=== PATIENT | male | born 1985 | race Caucasian/White ===

== ENCOUNTER 2018-07-19 17:05 | Emergency (ER) | payer SELFPAY ==
[~2018-07-19] VITALS: Ht 180.3 cm; Wt 65.9 kg
[2018-07-19 17:11] VITALS: Ht 180.3 cm; Wt 65.9 kg
[2018-07-19] MEDS ORDERED: KEFLEX500 MG PO (17:53)
[2018-07-19] MEDS ORDERED: TORADOL10 MG PO (17:53)
[2018-07-19 18:05] VITALS: BP 137/83
== END 2018-07-19 18:05 | disposition home or self-care (01) ==
LOC: D.ER 17:05
DX: S61.542A Puncture wound with foreign body of left wrist, initial encounter (principal); W29.4XXA Contact with nail gun, initial encounter; Y93.89 Activity, other specified; Y92.89 Other specified places as the place of occurrence of the external cause; F17.200 Nicotine dependence, unspecified, uncomplicated

== ENCOUNTER 2020-02-10 09:53 | Emergency (ER) | payer SELFPAY ==
[~2020-02-10] VITALS: Ht 180.3 cm; Wt 79.5 kg
[~2020-02-10 09:53] MED LIST: KEFLEX500 MG PO; TORADOL10 MG PO
[2020-02-10 09:58] VITALS: Ht 180.3 cm; Wt 79.5 kg
[2020-02-10 10:57] VITALS: BP 118/73
[2020-02-11] MEDS ORDERED: PERCOCET 5-3251 TAB PO (14:01)
[2020-02-11] MEDS ORDERED: DURICEF500 MG PO (14:01)
== END 2020-02-10 10:58 | disposition home or self-care (01) ==
LOC: D.ER 09:53
DX: S62.614A Displaced fracture of proximal phalanx of right ring finger, initial encounter for closed fracture (principal); W22.8XXA Striking against or struck by other objects, initial encounter; Y93.9 Activity, unspecified; Y92.9 Unspecified place or not applicable

== ENCOUNTER 2020-02-11 10:06 | Day surgery (SDC) | payer SELFPAY ==
[~2020-02-11] VITALS: Ht 180.3 cm; Wt 79.4 kg
[2020-02-11 10:42] VITALS: BP 116/68; Ht 180.3 cm; Wt 79.4 kg
[2020-02-11] MEDS ORDERED: PERCOCET 5-3251 TAB PO (14:01)
[2020-02-11] MEDS ORDERED: DURICEF500 MG PO (14:01)
--- NOTE | 2020-02-11 15:27 | NUR ---
DC INSTRUCTIONS GIVEN TO PT AND SO. STATES UNDERSTANDING. DC'D IV CATH FULLY INTACT.
--- NOTE | 2020-02-11 15:29 | NUR ---
PT LEFT UNIT VIA WC AT 1529
--- NOTE | 2020-02-12 08:28 | OP ---
PATIENT NAME: ARTEMIO CASILLAS MEDICAL RECORD: [id number] :86 LOCATION:[facility] ADMISSION DATE: SURGEON: IVAN RODRIGUEZ DO DATE OF OPERATION: 02/11/2020 PROCEDURE PERFORMED: Right ring finger external fixator placement. PREOPERATIVE DIAGNOSIS: Right ring finger middle phalanx fracture with PIP dislocation. POSTOPERATIVE DIAGNOSIS: Right ring finger middle phalanx fracture with PIP dislocation. INDICATIONS: Mr. Casillas is a 34-year-old male who sustained an injury to his right ring finger. It dislocated. He said he popped it back in. He was seen in the ER and was sent right over to my clinic. Upon seeing the x-rays, I have scheduled him for surgery today, informed him of the risks including continued pain, loss of motion of that finger, infection, bleeding, damage to nerves and vessels in the area, amputation even, extreme loss of motion and he signed the consent as well as need for another surgery. He has signed the consent. SURGEON: Ivan Rodriguez DO DESCRIPTION OF PROCEDURE: The patient was taken to the operative suite after given a block by anesthesia in the preoperative area, laid in the supine position, given general anesthetic and LMA was placed. The patient was given 2 grams of Ancef and the right upper extremity was prepped and draped in sterile fashion. A timeout was performed and everyone was in agreement with correct side, site, patient and procedure and exsanguinated the right upper extremity with an Esmarch, tourniquet was inflated to 250 mmHg, was up for 55 minutes. We then began by making an incision over the dorsal aspect of the PIP joint. Careful dissection was made down to the PIP joint. I split the extensor tendon there. The extensor tendon was intact as well as the central slip was attached to the middle phalanx, then opened the joint. I could not grab the piece that had been fractured through that method. I went volar, did a V-shaped incision on the volar aspect of the ring finger over the PIP joint and opened up to the tendons. The tendons were pulled to one side and the piece of the middle phalanx that was fractured was removed as it was too small for any type of fixation. Once that was completed, the instability was noted of the joint and I put on the external fixator putting a 0.045 K wire, first at the distal portion of the proximal phalanx and then 2 in the middle phalanx, 1 distally and 1 proximally at the joint. I then performed the external fixator, the most proximal wires to be most distal. Once that was completed, the other K-wires were bent. The more distal one on the middle phalanx was then just short of the more distal on the proximal phalanx and then the more proximal one in the middle phalanx was hooked over the longer one, the one that was in the proximal phalanx. I then put rubber bands on after bending them in a hook type fashion securing them and in fact distracting the PIP joint and holding it reduced, it was reduced well on x-ray on AP and lateral and had good motion and throughout range of motion remained reduced. The tourniquet was then let down and the sites were dressed with Adaptic, 4 x 4s and a Kerlix and Jose wrap. He was then awakened and taken to recovery in stable condition. BLOOD LOSS: Minimal. OPERATIVE REPORT [id number] ARTEMIO CASILLAS COMPLICATIONS: None. TRANSINT:[id number] Voice Confirmation ID: [id number] DOCUMENT ID: [id number] IVAN RODRIGUEZ DO at 0828 CC: [id number] DICTATION DATE: 02/11/[address] RESEARCHER: 02/12/20 0045 [facility] 02/11/20 [place] [id number] [place] [id number]
== END 2020-02-11 15:29 | disposition home or self-care (01) ==
LOC: D.OPS 10:06 → D.PAN 12:00 → D.OPS 12:35
PROVIDERS: ATTEND Orthopaedic Surgery
DX: S62.624A Displaced fracture of middle phalanx of right ring finger, initial encounter for closed fracture (principal); X58.XXXA Exposure to other specified factors, initial encounter